=== PATIENT | female | born 1955 ===

== ENCOUNTER 2025-07-28 15:02 | Outpatient (CLI) | payer OTHER, SELFPAY ==
--- NOTE | 2025-07-28 15:30 | PETR_ITS ---
PROCEDURE INFORMATION: Exam: PET/CT Skull Base to Mid-thigh Exam date and time: 07/28/2025 4:17 PM Age: 69 years old Clinical indication: Abnormal findings; Abnormal CT; Solitary pulmonary nodule; Additional info: R91.1 - solitary pulmonary nodule LABS AND CLINICAL REPORTS: Glucose: 109 mg/dl Treatment strategy for malignancy (PET staging): Initial Staging (PI) TECHNIQUE: Imaging protocol: Following at least four-hour fasting and following the injection of radiopharmaceutical, low dose CT images were obtained. Then, PET images were obtained. Attenuation corrected images were constructed using the CT scan. Fused images of PET and CT were reviewed. The standardized uptake values (SUV) reported below are maximum values within a region of interest, expressed in gm/ml. Exam includes orbital meatal line to mid-thigh. SUV normalization method: BodyWeight Radiopharmaceutical: 11.4 mCi F-18 FDG (Fluorodeoxyglucose), IV. Time of imaging post radiopharmaceutical administration: 49 minutes Injection site: R WRIST COMPARISON: 1. CT chest wo con [id number] 03/24/2025 10:[address] chest wo/w con [id number] 07/13/2025 7:43 AM FINDINGS: Brain: Visualized brain has normal physiologic uptake. Pharynx: No abnormal uptake. Larynx: No abnormal uptake. Lungs, pleura and trachea: 2 cm subpleural fluid density circumscribed round left lower lobe nodule on axial image 112 shows central photopenia and very low-level peripheral uptake with SUV max 2.2, stable size from 07/13/2025 and newly developed since 03/24/2025. Heart: Stable cardiomegaly with metallic densities at the right atrium and right ventricle. Nonspecific FDG uptake along left atrial appendage occlusion device, favor benign postprocedural. Redemonstrated mitral and tricuspid annular prostheses. Mediastinal space: No abnormal uptake. Liver: No abnormal uptake. Gallbladder and biliary ducts: No abnormal uptake. Pancreas: No abnormal uptake. Spleen: No abnormal uptake. Adrenal glands: No abnormal uptake. Kidneys and ureters: Normal physiologic uptake. Small nonobstructive right nephrolith. Photopenic left renal cysts. Stomach and bowel: No abnormal uptake. Colonic diverticulosis without findings of diverticulitis. Vasculature: No abnormal uptake. Mild systemic atherosclerotic calcification without aortic aneurysm. Lymph nodes: No abnormal uptake. No lymphadenopathy in the head, neck, chest, abdomen, pelvis, and extremities. Skeleton: No abnormal uptake in the visualized axial and appendicular skeleton. Median sternotomy stable from 07/13/2025, new from 03/24/2025, with associated low-level uptake that is likely postsurgical. Degenerative change along the axial skeletal system and shoulders. Soft tissues: Midline ventral chest wall scarring with associated low-level FDG uptake. FDG avid soft tissue and fat density 1 cm ventral right upper abdominal wall subcutaneous nodule with SUV max 6.2 on axial image 165 is likely inflammatory. METRICS: Mediastinal blood pool: SUV mean 2.3 Liver uptake: SUV mean 2.7 PET/PET skull to thigh INIT [id number] IMPRESSION: 1. 2 cm subpleural fluid density circumscribed round left lower lobe nodule with central photopenia and very low-level peripheral uptake favors benignity. 2. Additional chronic and incidental findings as above.
== END 2025-07-28 15:03 | disposition home or self-care (01) ==
LOC: RAD 15:02
PROVIDERS: PCP Family Medicine; Visit Provider Internal Medicine
DX: R91.1 Solitary pulmonary nodule (principal)
CPT/HCPCS: 78815; A9552

== ENCOUNTER → 2025-09-14 12:34 | Outpatient (BNVA) | payer MEDICARE, SELFPAY | PROVIDERS: PCP Family Medicine; Visit Provider Internal Medicine | DX: R91.1 Solitary pulmonary nodule (principal); Q79.59 Other congenital malformations of abdominal wall; Z79.01 Long term (current) use of anticoagulants; Z95.2 Presence of prosthetic heart valve; Z95.0 Presence of cardiac pacemaker; Z95.1 Presence of aortocoronary bypass graft | CPT/HCPCS: 99214; Q3014 ==